=== PATIENT | female | born 1970 | race Two or more races ===

== ENCOUNTER 2017-11-16 05:22 | Day surgery (SDC) | payer OTHER ==
[2017-11-16 06:45] LABS: ADD MAN DIFF? NO
[2017-11-16] MEDS ORDERED: MIDAZOLAM 1 MG/ML 2 ML INJ (06:46)
[2017-11-16] MEDS ORDERED: ROPIVACAINE 0.5 % 30 ML VIAL (06:52)
[2017-11-16] MEDS ORDERED: SOD CHLORIDE 0.9% 1,000 ML IV (06:53)
[2017-11-16 06:56] LABS: WHITE BLOOD COUNT 9.7 10^3/ul (4.8-10.8)
[2017-11-16 06:56] LABS: BASOPHIL # 0.1 10^3/ul (0.0-0.1); BASOPHILS % 0.7 % (0.0-2.0); EOSINOPHILS # 0.2 10^3/ul (0.0-0.5); EOSINOPHILS % 2.3 % (0.0-7.0); HEMATOCRIT 33.5 % (37.0-47.0); HEMOGLOBIN 10.5 g/dl (12.0-16.0); LYMPHOCYTES # 3.2 10^3/ul (0.8-2.9); LYMPHOCYTES % 33.1 % (15.0-51.0); MEAN CORPUSCULAR HEMOGLOBIN 25.2 pg (29.0-33.0); MEAN CORPUSCULAR HGB CONC 31.3 g/dl (32.0-37.0); MEAN CORPUSCULAR VOLUME 80.3 fl (82.0-101.0); MEAN PLATELET VOLUME 9.7 fl (7.4-10.4); MONOCYTE # 0.7 10^3/ul (0.3-0.9); MONOCYTES % 7.3 % (0.0-11.0); NEUTROPHIL # 5.3 10^3/ul (1.6-7.5); NEUTROPHILS % 54.6 % (39.0-77.0); NUCLEATED RED BLOOD CELLS% 0.4 /100WBC (0.0-0.0); PLATELET COUNT 351 10^3/UL (140-415); RED BLOOD COUNT 4.17 10^6/ul (4.20-5.40); RED CELL DISTRIBUTION WIDTH 16.2 % (11.5-14.5)
[2017-11-16] MEDS ORDERED: OXYCODONE/ACETAMINOPHEN (5/325) TAB PO ×4 (07:00→11:00)
[2017-11-16] MEDS ORDERED: morphine 2 MG INJ IV (07:00)
[2017-11-16] MEDS ORDERED: VANCOMYCIN 1 GM (PMX) 250 ML (07:02)
[2017-11-16] MEDS: INSULIN ASPART [NOVOLOG] 3 ML PEN SC (07:05)
[2017-11-16 07:11] LABS: ALANINE AMINOTRANSFERASE 17 IU/L (13-69); ALBUMIN 3.4 g/dl (3.3-4.9); ALBUMIN/GLOBULIN RATIO 0.94; ALKALINE PHOSPHATASE 107 IU/L (42-121); ANION GAP 13 (8-16); ASPARTATE AMINO TRANSFERASE 18 IU/L (15-46); CARBON DIOXIDE 20 mmol/L (21-31); CHLORIDE 112 mmol/L (97-110); GLUCOSE 213 mg/dl (70-220)
[2017-11-16] MEDS ORDERED: LIDOCAINE 2% (SDV) 5 ML INJ (07:13)
[2017-11-16] MEDS ORDERED: PROPOFOL 20 ML ×2 (07:13→07:39)
[2017-11-16] MEDS ORDERED: ROCURONIUM 50 MG INJ ×2 (07:13→08:02)
[2017-11-16] MEDS ORDERED: SUCCINYLCHOLINE CHLORIDE 100 MG/5 ML SYG IV (07:13)
[2017-11-16 07:19] LABS: INR 0.92; PARTIAL THROMBOPLASTIN TIME 31.2 Sec (25.0-35.0); PROTIME 12.4 Sec (11.9-14.9)
[2017-11-16 07:32] LABS: BLOOD UREA NITROGEN 24 mg/dl (7-20); CALCIUM 9.2 mg/dl (8.4-10.2); CREATININE 1.86 mg/dl (0.44-1.00); POTASSIUM 5.3 mmol/L (3.5-5.1); SODIUM 140 mmol/L (135-144)
[2017-11-16] MEDS ORDERED: ONDANSETRON 4 MG INJ (07:54)
[2017-11-16] MEDS ORDERED: FAMOTIDINE 20 MG INJ (07:54)
[2017-11-16] MEDS ORDERED: INSULIN ASPART [NOVOLOG] 3 ML PEN SC (08:00)
[2017-11-16] MEDS ORDERED: EPHEDrine SULFATE 50 MG/5 ML SYG (08:29)
[2017-11-16] MEDS: POVIDONE IODINE 10% 28.4 GM OINT (08:49)
[2017-11-16] MEDS: POLYMYXIN/BACITRACIN 1L IRRIG (08:49)
[2017-11-16] MEDS: ROPIVACAINE 0.5 % 30 ML VIAL (08:49)
[2017-11-16] MEDS ORDERED: HYDROmorphONE 2 MG/ML SYG (09:50)
[2017-11-16] MEDS ORDERED: SUGAMMADEX SODIUM 200 MG/2 ML VIAL IV (09:58)
[2017-11-16] MEDS ORDERED: DIPHENHYDRAMINE 50 MG INJ IV (11:00)
[2017-11-16] MEDS ORDERED: PROCHLORPERAZINE 10 MG INJ IV (11:00)
[2017-11-16] MEDS ORDERED: MEPERIDINE 25 MG INJ IV (11:00)
[2017-11-16] MEDS ORDERED: HYDROmorphONE (0.2 MG/ML) 10ML SYG IV ×3 (11:00)
[2017-11-16] MEDS ORDERED: FENTAnyl 50 MCG/ML VIAL IV ×3 (11:00)
[2017-11-16] MEDS: ONDANSETRON 4 MG INJ IV ×3 (11:22→12:07)
[2017-11-16] MEDS: LABETALOL HCL 20MG INJ IV ×2 (11:39→11:45)
[2017-11-16] MEDS: hydrALAzine 20 MG INJ IV (11:57)
[2017-11-16] MEDS ORDERED: ALBUTEROL 0.083% (NEB) 2.5 MG/3 ML AMP (12:09)
== END 2017-11-16 14:00 | disposition home or self-care (01) ==
LOC: SDS 05:22
DX: M25.872 Other specified joint disorders, left ankle and foot (principal); M25.372 Other instability, left ankle; M93.272 Osteochondritis dissecans, left ankle and joints of left foot; I10 Essential (primary) hypertension; E11.9 Type 2 diabetes mellitus without complications; E66.01 Morbid (severe) obesity due to excess calories; Z68.39 Body mass index [BMI] 39.0-39.9, adult
CPT/HCPCS: 27695; 80053; 82962; 84703; 85025; 85610; 85730; 94664